=== PATIENT | female | born 1950 | race Caucasian/White ===

== ENCOUNTER → 2016-03-25 | Outpatient (CLI) | payer MEDICARE ==
[~2016-03-25] MED LIST: CIPRO500 MG PO; Coumadin5 MG PO; DILTIAZEM 24HR120 MG PO; DOK COLACE100 MG PO; DUONEB 3 MG/3 ML3 M1 NEB; FLAGYL500 MG PO; K-TAB20 MEQ PO; LASIX40 MG PO; MAGNESIUM400 M1 PO; PERCOCET 325 MG1 TA2 PO; Percocet 325 MG1 TAB PO; ZOFRAN4 MG PO
== END | disposition home or self-care (01) ==
LOC: CT 09:52
DX: R41.3 Other amnesia (principal)

== ENCOUNTER → 2016-06-13 | Day surgery (SDC) | payer MEDICARE ==
[~2016-06-13] VITALS: Ht 147.3 cm; Wt 39.9 kg
--- NOTE | ~2016-06-13 | PROC NOTE ---
[place], [place] PROCEDURE NOTE NAME: MEKA OVIEDO [facility] #: [id number] UNIT #: [id number] ROOM: DOCTOR: DOYLE GAN MD BIRTHDATE: [birth year] DOS: 06/13/2016 PREOPERATIVE DIAGNOSIS: Status post right colectomy, loop colostomy for distal sigmoid stricture. POSTOPERATIVE DIAGNOSIS: Status post right colectomy, loop colostomy for distal sigmoid stricture. PROCEDURE: Colonoscopy via the rectum and colostomy. ENDOSCOPIST: Doyle Gan M.D. UNDER SEAL OPERATOR: NORA. ANESTHESIA: MAC. INDICATIONS: This is a 66-year-old lady who underwent right colectomy for a perforated diverticulum in early January 2016 and was followed by a loop colostomy in January 2016 for a distal sigmoid stricture, who is here for the above-mentioned procedure. The procedure and its complications explained to the patient in detail. Complications that were discussed included, but were not limited to bleeding, infection, colon perforation, and missed lesions. She agreed to proceed. DESCRIPTION OF PROCEDURE: After identifying the patient, the patient was brought to the operating suite and laid in the left lateral position. After IV sedation was administered by the anesthesia team, a timeout procedure was called and a digital rectal exam was performed, which was within normal limits. There was no blood on the examining finger and no masses that could be palpable. At this point, an adult colonoscope was now introduced into the anal canal and advanced sequentially into the rectum and the rectosigmoid junction, where there was resistance that was met and also lot of solid stool that was encountered. This was attempted to be washed away with irrigation, but I was unable to do that. Because of limited visibility, the scope was withdrawn and the patient was then turned in the supine position and the colostomy bag was taken off. At this point, the scope was introduced into the colostomy and advanced to approximately 15-20 cm from the edge of the colostomy. Again, I ran into some solid stool and I could not negotiate the scope beyond this point, not just because of the stool, but also because of possibly adhesions or unusual tortuosity of the colon. At this point, the scope was withdrawn. There were no obvious mucosal lesions that could be identified. The patient was taken to the recovery room in a stable fashion. The patient is recommended to have barium study in approximately 2-3 weeks from now. I have spoken to her brother about this, and based on the barium study, I will determine when her next colonoscopy would be advisable. The patient tolerated the procedure well. There were no complications. Dr. Doyle Gan, the attending endoscopist, was present throughout the operating case. [place], [place] PROCEDURE NOTE NAME: MEKA OVIEDO UNIT #: [id number] ROOM: DOCTOR: DOYLE GAN MD BIRTHDATE: [birth year] Doyle Gan MD CM:PROCNOTE:PROCEDURE NOTE [id number] DOYLE GAN MD
[2016-06-13 07:00] VITALS: BP 103/69
[2016-06-13 07:56] VITALS: BP 96/50
[2016-06-13 08:15] VITALS: BP 103/65
[2016-06-13 08:28] VITALS: BP 118/78
== END | disposition home or self-care (01) ==
LOC: SDC 06-10 08:00
DX: K56.69 Other intestinal obstruction (principal); I10 Essential (primary) hypertension; I50.30 Unspecified diastolic (congestive) heart failure; I48.91 Unspecified atrial fibrillation; Z82.3 Family history of stroke; F17.210 Nicotine dependence, cigarettes, uncomplicated; F41.9 Anxiety disorder, unspecified; F32.9 Major depressive disorder, single episode, unspecified; I71.9 Aortic aneurysm of unspecified site, without rupture; Z93.3 Colostomy status; Z98.890 Other specified postprocedural states; Z53.8 Procedure and treatment not carried out for other reasons

== ENCOUNTER → 2016-07-18 | Outpatient (CLI) | payer MEDICARE | END | disposition home or self-care (01) | LOC: RAD 09:00 | DX: K57.30 Diverticulosis of large intestine without perforation or abscess without bleeding (principal); Z93.3 Colostomy status ==

== ENCOUNTER 2018-10-26 18:02 | Emergency (ER) | payer MEDICARE ==
[~2018-10-26] VITALS: Ht 149.8 cm; Wt 45.4 kg
[2018-10-26 18:36] LABS: BASO # 0.1 10*3/uL (0.0-0.1); BASO % 0.8 % (0.0-1.0); EOS # 0.4 10*3/uL (0.0-0.4); EOS % 5.9 % (1.0-4.0); HEMATOCRIT 37.9 % (37.0-47.0); LYMPH # 1.7 10*3/uL (1.3-4.4); LYMPH % 26.7 % (27.0-41.0); MEAN CORPUSCULAR HGB 29.8 pg (27.0-31.0); MEAN CORPUSCULAR HGB CONC 31.7 g/dl (33.0-37.0); MEAN PLATELET VOLUME 9.8 fl (9.6-12.3); MONO # 0.5 10*3/uL (0.1-1.0); MONO % 7.6 % (3.0-9.0); NEUT # 3.8 10*3/uL (2.3-7.9); NEUT % 58.2 % (47.0-73.0); PLATELET COUNT AUTOMATED 134 10*3/uL (130-400); RED BLOOD COUNT 4.03 10*6/uL (4.10-5.10); RED CELL DISTRI WIDTH 14.3 % (0-14.5); WHITE BLOOD COUNT 6.5 10*3/uL (4.8-10.8)
[2018-10-26 18:50] LABS: ALBUMIN 3.2 gm/dl (3.1-4.5); ALKALINE PHOSPHATASE 75 U/L (45-117); BUN 28 mg/dl (7-24); CHLORIDE 112 mmol/L (98-107); CREATININE 1.16 mg/dL (0.55-1.02); POTASSIUM 4.1 mmol/L (3.5-5.1); SGOT/AST 12 IU/L (3-35); SGPT/ALT 11 U/L (12-78); SODIUM 140 mmol/L (136-145); TOTAL PROTEIN 6.9 gm/dL (6.4-8.2)
[2018-10-26 18:52] LABS: ETHYL ALCOHOL < 3.0 mg/dl (<3)
[2018-10-26 19:38] LABS: BILIRUBIN NEGATIVE (NEGATIVE); BLOOD 1+ (NEGATIVE); CLARITY CLEAR (CLEAR); COLOR YELLOW (YELLOW); GLUCOSE NEGATIVE (NEGATIVE); KETONE NEGATIVE (NEGATIVE); LEUKO ESTERASE NEGATIVE (NEGATIVE); NITRITE NEGATIVE (NEGATIVE); SPECIFIC GRAVITY <= 1.005 (1.005-1.030); UROBILINOGEN 0.2 E.U./dl (0.2-1.0)
[2018-10-26 19:55] LABS: BACTERIA TRACE; RBC 0-2 rbc/hpf (0-2); WBC 0-2 wbc/hpf (0-5)
[2018-10-26 20:04] LABS: URINE AMPHETAMINES < 1000 (1000ng/ml); URINE BARBITURATES < 200 (200ng/ml); URINE BENZODIAZEPINES < 200 (200ng/ml); URINE CANNABINOIDS (THC) < 50 (50ng/ml); URINE COCAINE < 300 (300ng/ml); URINE METHADONE < 300 (300ng/ml); URINE OPIATES < 300 (300ng/ml)
[2018-10-26 20:07] LABS: URINE PHENCYCLIDINE < 25 (25ng/ml)
== END 2018-10-26 20:53 | disposition home or self-care (01) ==
LOC: ED 18:02
PROVIDERS: Nurse Practitioner Family
DX: F32.9 Major depressive disorder, single episode, unspecified (principal); F41.9 Anxiety disorder, unspecified; F17.200 Nicotine dependence, unspecified, uncomplicated; Z79.899 Other long term (current) drug therapy; Z79.01 Long term (current) use of anticoagulants

== ENCOUNTER → 2018-12-01 | Outpatient (CLI) | payer MEDICARE ==
[2018-12-01 16:40] LABS: BILIRUBIN 1+ (NEGATIVE); BLOOD TRACE-INTACT (NEGATIVE); CLARITY SL CLOUDY (CLEAR); COLOR YELLOW (YELLOW); GLUCOSE NEGATIVE (NEGATIVE); KETONE NEGATIVE (NEGATIVE); LEUKO ESTERASE NEGATIVE (NEGATIVE); NITRITE NEGATIVE (NEGATIVE); PH 5.5 (5.0-9.0); SPECIFIC GRAVITY 1.025 (1.005-1.030); UROBILINOGEN 0.2 E.U./dl (0.2-1.0)
[2018-12-01 16:47] LABS: WBC 0-2 wbc/hpf (0-5)
[2018-12-01 16:48] LABS: BACTERIA TRACE; RBC 0-2 rbc/hpf (0-2)
== END | disposition home or self-care (01) ==
LOC: RESCLI 03:45
PROVIDERS: Internal Medicine Nephrology
DX: I48.0 Paroxysmal atrial fibrillation (principal); F03.90 Unspecified dementia, unspecified severity, without behavioral disturbance, psychotic disturbance, mood disturbance, and anxiety; F32.9 Major depressive disorder, single episode, unspecified; N17.9 Acute kidney failure, unspecified; F41.9 Anxiety disorder, unspecified; Z79.899 Other long term (current) drug therapy; Z88.8 Allergy status to other drugs, medicaments and biological substances

== ENCOUNTER → 2019-01-05 | Outpatient (CLI) | payer MEDICARE | END | disposition home or self-care (01) | LOC: RESCLI 02:18 | DX: Z23 Encounter for immunization (principal); I48.0 Paroxysmal atrial fibrillation; F41.9 Anxiety disorder, unspecified; F32.9 Major depressive disorder, single episode, unspecified; F03.90 Unspecified dementia, unspecified severity, without behavioral disturbance, psychotic disturbance, mood disturbance, and anxiety; I13.0 Hypertensive heart and chronic kidney disease with heart failure and stage 1 through stage 4 chronic kidney disease, or unspecified chronic kidney disease; I50.30 Unspecified diastolic (congestive) heart failure; N18.9 Chronic kidney disease, unspecified; F17.210 Nicotine dependence, cigarettes, uncomplicated; Z79.01 Long term (current) use of anticoagulants; Z79.899 Other long term (current) drug therapy ==

== ENCOUNTER → 2019-06-10 | Outpatient (CLI) | payer OTHER ==
[2019-06-10 10:55] LABS: HEMATOCRIT 44.2 % (37.0-47.0); HEMOGLOBIN 13.6 g/dl (12.0-16.0); MEAN CELL VOLUME 97.6 fl (81.0-99.0); MEAN CORPUSCULAR HGB CONC 30.8 g/dl (33.0-37.0); MEAN PLATELET VOLUME 9.5 fl (9.6-12.3); RED BLOOD COUNT 4.53 10*6/uL (4.10-5.10); RED CELL DISTRI WIDTH 16.6 % (0-14.5); WHITE BLOOD COUNT 7.8 10*3/uL (4.8-10.8)
[2019-06-10 11:16] LABS: ALBUMIN 3.4 gm/dl (3.1-4.5); CREATININE 2.1 mg/dL (0.55-1.02); FREE T4 0.81 ng/dl (0.76-1.46); POTASSIUM 4.9 mmol/L (3.5-5.1); TOTAL PROTEIN 7.7 gm/dL (6.4-8.2)
[2019-06-10 11:20] LABS: THYROID STIM HORMONE (HS) 11.5 uIU/ml (0.358-4.75)
[2019-06-11 07:05] LABS: HEP B CORE AB, IGM Negative (Negative); HEPATITIS B SURFACE AG Negative (Negative); HEPATITIS C VIRUS ANTIBODY <0.1 s/co (0.0-0.9)
== END | disposition home or self-care (01) ==
LOC: LAB 10:08
PROVIDERS: Family Medicine
DX: E78.00 Pure hypercholesterolemia, unspecified (principal); R53.83 Other fatigue; F03.90 Unspecified dementia, unspecified severity, without behavioral disturbance, psychotic disturbance, mood disturbance, and anxiety; I48.91 Unspecified atrial fibrillation; F41.1 Generalized anxiety disorder; R41.0 Disorientation, unspecified; E55.9 Vitamin D deficiency, unspecified

== ENCOUNTER → 2019-06-23 | Outpatient (CLI) | payer OTHER | END | disposition home or self-care (01) | LOC: LAB 10:29 | DX: N18.4 Chronic kidney disease, stage 4 (severe) (principal) ==

== ENCOUNTER → 2019-06-29 | Outpatient (CLI) | payer OTHER | END | disposition home or self-care (01) | LOC: US 12:51 | DX: N18.4 Chronic kidney disease, stage 4 (severe) (principal) ==